=== PATIENT | male | born 1985 | race Caucasian/White ===

== ENCOUNTER 2017-07-31 12:37 | Emergency (ER) | payer SELFPAY ==
[~2017-07-31] VITALS: Ht 165.1 cm; Wt 88.5 kg
[2017-07-31 12:50] VITALS: Ht 165.1 cm; Wt 88.5 kg
== END 2017-07-31 14:51 | disposition left against medical advice (07) ==
LOC: FTE 12:37
DX: Z53.21 Procedure and treatment not carried out due to patient leaving prior to being seen by health care provider (principal)